=== PATIENT | male | born 1985 | race Caucasian/White ===

== ENCOUNTER 2016-09-18 23:43 | Emergency (ER) | payer OTHER ==
[2016-09-19 00:38] VITALS: BP 143/93
--- NOTE | 2016-09-19 00:58 | EDM.PDOC ---
<Terell Harp [place] - Last Filed: 09/19/16 03:36> ED HPI GENERAL MEDICAL PROBLEM - General Chief Complaint: Lower Extremity Injury/Pain Stated Complaint: INJURY TO RIGHT FOOT Time Seen by Provider: 09/19/16 00:45 - Related Data Allergies Allergy/AdvReac Type Severity Reaction Status Date / Time No Known Allergies Allergy Verified 09/19/16 00:39 Home Meds: Home Meds Acetaminophen/HYDROcodone [Bureau 325-5 MG] 1 tab PO Q6H PRN #20 tablet 09/19/16 [Rx] Acetaminophen/HYDROcodone [Bureau 325-5 MG] 1 tab PO Q6H PRN #5 tablet 09/19/16 [ Rx] Course - Vital Signs Last Recorded V/S: Last Vital Signs Temp 97.9 F 09/19/16 00:34 Pulse 74 09/19/16 00:34 Resp 14 09/19/16 00:34 BP 143/93 H 09/19/16 00:34 Pulse Ox 100 09/19/16 00:34 - Orders/Labs/Meds Orders: Active Orders 24 hr Category Date Time Status Foot Comp Min 3V Rt [CR] Stat Exams 09/19/16 00:55 Taken Foot wo Cont Rt [CT] Stat Exams 09/19/16 02:07 Taken DME for Discharge [COMM] Stat Oth 09/19/16 03:40 Ordered - Re-Assessments/Exams Free Text/Narrative Re-Assessment/Exam: 09/19/16 03:[address] Zimmerman, Orthopedic Surgeon at [facility] at 03:33. He recommended we place the patient into a splint with crutches, and have the patient call their clinic this morning, in order to arrange to be seen by Dr. Des Salguero, as early as today. Departure - Departure Disposition: Home, Self-Care 01 Clinical Impression: Foot fracture, right Qualifiers: Encounter type: initial encounter Fracture type: closed Qualified Code(s): S92.901A - Unspecified fracture of right foot, initial encounter for closed fracture - Discharge Information Prescriptions: Acetaminophen/HYDROcodone [Bureau 325-5 MG] 1 tab PO Q6H PRN #20 tablet PRN Reason: Pain (Severe 7-10) Instructions: Metatarsal Fracture Referrals: PCP,None [Primary Care Provider] - Des Salguero MD [Ordering Only Provider] - Forms: ED Department Discharge Additional Instructions: You are to be nonweightbearing utilizing crutches only to ambulate. Elevate the affected extremity when able to reduce swelling and pain. Continuously use the polar ice machine when resting to reduce any swelling and pain as well. Call [facility] this morning to be seen by Dr. Salguero today for further evaluation and treatment. For pain take ibuprofen and Tylenol in alternating fashion. For severe pain take Bureau one tablet every 6 hours as needed. No driving while taking Bureau. Return to the ED if he developed worsening pain to your right foot. This may be concerning for compartment syndrome which requires immediate evaluation. - My Orders Last 24 Hours: My Active Orders 09/19/16 00:55 Foot Comp Min 3V Rt [CR] Stat 09/19/16 02:07 Foot wo Cont Rt [CT] Stat 09/19/16 03:40 DME for Discharge [COMM] Stat - Assessment/Plan Last 24 Hours: My Active Orders 09/19/16 00:55 Foot Comp Min 3V Rt [CR] Stat 09/19/16 02:07 Foot wo Cont Rt [CT] Stat 09/19/16 03:40 DME for Discharge [COMM] Stat <Austyn Cook O - Last Filed: 09/19/16 04:09> ED HPI GENERAL MEDICAL PROBLEM - General Source of Information: Reports: Patient History Limitations: Reports: No Limitations - History of Present Illness INITIAL COMMENTS - FREE TEXT/NARRATIVE: Patient is a 30-year-old male who presents ED complaining of right foot pain. Patient states while [place] riding at the local [employer] he got bucked up but slipped out of the stirrups when he came back down the tip of his remaining in the stirrup and bent at an awkward position. Experience immediate pain but was able to ambulate with a limp out of the arena. Since the injury pain has progressively gotten worse and along with swelling. Pain is minimal at rest noted increased with ambulation. He has numbness/tingling. He denies any pain to his ankle, tib-fib, knee, upper thigh, hip. He has no prior injuries to the affected foot. Onset: Today, Sudden Duration: Constant, Getting Worse Location: Reports: Lower Extremity, Right (Foot) Right Feet Pain Score (Numeric/FACES): 6 Social & Family History - Family History Family Medical History: Noncontributory - Tobacco Use Smoking Status *Q: Current Every Day Smoker Years of Tobacco use: 10 Packs/Tins Daily: 4 Used Tobacco, but Quit: No - Caffeine Use Caffeine Use: Reports: Coffee - Recreational Drug Use Recreational Drug Use: No Review of Systems - Review of Systems Review Of Systems: See Below Musculoskeletal: Reports: Foot Pain (Right) Skin: Reports: Bruising (Along the dorsum and lateral aspect of the foot) Neurological: Reports: Difficulty Walking (Secondary to right foot pain), Gait Disturbance. Denies: Numbness, Tingling ED EXAM, GENERAL - Physical Exam Exam: See Below Exam Limited By: No Limitations General Appearance: Alert, WD/WN, No Apparent Distress Ears: Hearing Grossly Normal Nose: Normal Inspection Throat/Mouth: Normal Voice, No Airway Compromise Neck: Normal Inspection, Supple Respiratory/Chest: No Respiratory Distress, No Accessory Muscle Use Cardiovascular: Normal Peripheral Pulses, Regular Rate, Rhythm Peripheral Pulses: 2+: Posterior Tibial (R), Dorsalis Pedis (R) Extremities: Other (Swelling and bruising noted to the dorsum/lateral aspect of the right foot. Increasing pain with palpation of the second third fourth and fifth metatarsal. No pain with palpation of the lateral and medial malleolus. No pain with palpation of tib-fib/knee/upper leg. No sensory deficits noted. He is able to wiggle his toes. Decreased range of motion with the foot secondary to pain.) Neurological: Alert, Oriented, Normal Cognition, No Motor/Sensory Deficits Psychiatric: Normal Affect, Normal Mood Skin Exam: Warm, Dry, Intact ED TRAUMA EXTREMITY PROCEDURES - Splinting Right Lower Extremity Pre-Procedure NV Status: Normal Post-Procedure NV Status: Normal Splint Material: Fiberglass Splint Design: Posterior (90 degrees) Applied & Form Fitted By: Other (Dr. Harp) Provider Post-Splint Application NV Check: NV Status Normal, Good Position Complications: No Course - Orders/Labs/Meds Orders: Active Orders 24 hr Category Date Time Status Foot Comp Min 3V Rt [CR] Stat Exams 09/19/16 00:55 Taken Foot wo Cont Rt [CT] Stat Exams 09/19/16 02:07 Taken DME for Discharge [COMM] Stat Oth 09/19/16 03:40 Ordered - Re-Assessments/Exams Free Text/Narrative Re-Assessment/Exam: Order x-ray of the right foot. Pain is controlled. Multiple fractures to the right foot concerning for Lisfranc fracture. Ordered CT he. Without contrast. CT of the right foot findings: Multiple metatarsal fractures with evidence for Lisfranc injury as described above. Departure - Departure Time of Disposition: 03:39 Condition: Fair - My Orders Last 24 Hours: My Active Orders 09/19/16 00:55 Foot Comp Min 3V Rt [CR] Stat 09/19/16 02:07 Foot wo Cont Rt [CT] Stat 09/19/16 03:40 DME for Discharge [COMM] Stat - Assessment/Plan Last 24 Hours: My Active Orders 09/19/16 00:55 Foot Comp Min 3V Rt [CR] Stat 09/19/16 02:07 Foot wo Cont Rt [CT] Stat 09/19/16 03:40 DME for Discharge [COMM] Stat
--- NOTE | 2016-09-19 13:12 | CR ---
Right foot: Four views of the right foot were obtained. Diffuse soft tissue swelling is identified. Comminuted fracture is identified within the base of the second metatarsal with articular extension. Fractures are seen within the distal second and third metatarsals near the metatarsal heads. Mild Lisfranc deformity is seen. Fracture also felt to be present within the base of the fourth metatarsal involving the articular margin. Impression: 1. Multiple fractures with Lisfranc deformity. 2. Soft tissue swelling. Diagnostic code #3
--- NOTE | 2016-09-19 13:12 | CT ---
CT right foot Technique: Multiple axial sections through the right foot were obtained. Reconstructed sagittal and coronal images were reviewed. Comparison: Previous plain film foot study performed earlier on the same day Findings: Nondisplaced fractures are identified near the metatarsal heads within the second and third toes. Comminuted fracture identified within the base of the second metatarsal with articular extension and displacement up to 6 mm. Fracture also noted at the base of the fourth metatarsal which shows no significant displacement. Small bony densities are noted off the lateral cuboid bone most likely due to small chip fractures. There is mild lateral deviation of the metatarsal bones felt compatible with Lisfranc injury. Diffuse soft tissue swelling is present. Impression: 1. Fractures as noted above with Lisfranc injury. Diagnostic code #3 Agree with preliminary report issued by [facility] ([facility] report dictated on 09/19/16, 3:50 AM Central Time)
== END 2016-09-19 06:29 | disposition home or self-care (01) ==
LOC: JD.ED 23:43
DX: S92.324A Nondisplaced fracture of second metatarsal bone, right foot, initial encounter for closed fracture (principal); S92.344A Nondisplaced fracture of fourth metatarsal bone, right foot, initial encounter for closed fracture; F17.210 Nicotine dependence, cigarettes, uncomplicated; V80.919A Animal-rider injured in unspecified transport accident, initial encounter; Y92.39 Other specified sports and athletic area as the place of occurrence of the external cause
CPT/HCPCS: 29515; 73630-26-RT; 73630-RT; 73700-26-RT; 73700-RT; 99283-25; 99284-25